=== PATIENT | female | born 1950 | race Caucasian/White ===

== ENCOUNTER 2017-09-24 09:05 | Outpatient (CLI) | payer OTHER ==
[2012-10-21 11:57] VITALS: BP 132/82
--- NOTE | 2017-09-24 10:04 | Diagnostic Imaging Report ---
CRISTIAN GONZALEZ [facility] [address] [facility] [address] [address] Report Submission Date: Sep 24, 2017 9:51:40 AM GOVERNMENT AFFAIRS MANAGER Patient Study Name: ALTHEA DINH Date: Sep 24, 2017 9:19:38 AM GOVERNMENT AFFAIRS MANAGER Modality Type: CR Gender: F Description: LOWER EXTREMITY : 52 Institution: [facility] Physician: CRISTIAN GONZALEZ Examination: Plain right film foot History: RT FOOT PAIN AFTER FOOT STEPPED ON BY HORSE (Hx) / RIGHT FOOT PAIN AFTER STEPPED ON BY HORSE (DICOM Hx) / RIGHT FOOT PAIN AFTER STEPPED ON BY HORSE (Pt comments) Findings: 3 views of the right foot demonstrates osteopenia. Articular degenerative spurring. No fracture or dislocation. Normal epiphysis. No soft tissue swelling. No joint effusion. Impression: Osteopenia and early degenerative changes. No evidence for fracture. Electronically signed on Sep 24, 2017 9:51:40 AM GOVERNMENT AFFAIRS MANAGER by: Arnold HANNAH
--- NOTE | 2017-09-24 10:05 | Diagnostic Imaging Report ---
CRISTIAN GONZALEZ [facility] [address] [facility] [address] [address] Report Submission Date: Sep 24, 2017 9:53:29 AM AUTOMATIC SPINNING LATHE OPERATOR Patient Study Name: ALTHEA DINH Date: Sep 24, 2017 9:23:24 AM AUTOMATIC SPINNING LATHE OPERATOR Modality Type: CR Gender: F Description: LOWER EXTREMITY : 52 Institution: [facility] Physician: CRISTIAN GONZALEZ Examination: Plain film calcaneus bilaterally History: ILATERAL CALCANEUS, BILATERAL HEEL PAIN FOR A FEW MONTHS, NO KNOWN INJURY TO HEELS (Hx) / HEEL PAIN (DICOM Hx) / HEEL PAIN (Pt comments) Findings: 2 views of the right and left calcaneus demonstrates normal cortical margins. No fracture or dislocation. Small inferior calcaneal spurs. No soft tissue swelling. No joint effusion. Impression: Small inferior calcaneal spurs. No acute osseous process. If suspect plantar fasciitis or Achilles tendon inflammation, consider obtaining MRI. Electronically signed on Sep 24, 2017 9:53:29 AM AUTOMATIC SPINNING LATHE OPERATOR by: Arnold HANNAH
== END 2017-09-24 09:06 ==
LOC: RAD 09:05
PROVIDERS: ATTEND Family Medicine
DX: M25.572 Pain in left ankle and joints of left foot (principal); M25.571 Pain in right ankle and joints of right foot
CPT/HCPCS: 73630; 73650

== ENCOUNTER 2018-09-21 11:45 | Outpatient (CLI) | payer OTHER ==
[2012-10-21 11:57] VITALS: BP 132/82
--- NOTE | 2018-09-21 15:02 | Diagnostic Imaging Report ---
TUCKER LABOY [facility] [address] [facility] [address] [address] Report Submission Date: Sep 21, 2018 1:05:41 PM DOCKET SPECIALIST Patient Study Name: ALTHEA DINH Date: Sep 21, 2018 11:59:51 AM DOCKET SPECIALIST Modality Type: DX Gender: F Description: FOOT 3 OR MORE VIEWS : 52 Institution: [facility] Physician: TUCKER LABOY Examination: Plain film left foot History: LEFT FOOT ACUTE PAIN X 2-3 WEEKS OVER CUBOID REGION. Findings: 3 weightbearing views of the left foot demonstrates osteopenia. No fracture or dislocation. Inferior calcaneal spur. No soft tissue swelling. No joint effusion. Impression: Osteopenia and degenerative changes. No acute appearing cortical abnormality. Electronically signed on Sep 21, 2018 1:05:41 PM DOCKET SPECIALIST by: Arnold HANNAH
== END 2018-09-21 12:10 ==
LOC: RAD 11:45
PROVIDERS: ATTEND Podiatrist Foot & Ankle Surgery
DX: M85.872 Other specified disorders of bone density and structure, left ankle and foot (principal)
CPT/HCPCS: 73630